=== PATIENT | male | born 1990 | race Hispanic/Latino ===

== ENCOUNTER 2017-11-30 10:42 | Day surgery (SDC) | payer OTHER ==
[2017-11-30] MEDS ORDERED: NACL 0.9% 1000 ML 1,000 ML IV SCH (12:00)
[2017-11-30] MEDS ORDERED: ANCEF/STERILE WATER 2 GM/20 ML IV NR (12:00)
--- NOTE | 2017-11-30 12:00 | Anesthesia Day of Surgery ---
Anesthesia Day of Surgery - Day of Surgery Patient Examined: Yes Patient H&P Reviewed: Yes Patient is NPO: Yes Beta Blockers: No Cardiac Clearance: No Pulmonary Clearance: No
--- NOTE | 2017-11-30 12:00 | Anesthesia Consultation ---
Anesthesia Consult and Med Hx Date of service: 11/30/17 - Airway Anesthetic Teeth Evaluation: Good ROM Head & Neck: Adequate Mallampati Class: Class II Intubation Access Assessment: Probably Good - Pulmonary Exam CTA: Yes - Cardiac Exam Cardiac Exam: RRR - Pre-Operative Health Status ASA Pre-Surgery Classification: ASA2 Proposed Anesthetic Plan: General - Pre-Anesthesia Comment Pre-Anesthesia Comments: smoker/fractured radius - Pulmonary Hx Smoking: Yes (4 PER DAY X 2 YRS) Hx Sleep Apnea: No (DEON PRE SCREEN LOW RISK.) - Cardiovascular System Hx Hypertension: No - Other Systems Hx Cancer: No
[2017-11-30] MEDS ORDERED: DILAUDID ONE (12:22)
[2017-11-30] MEDS ORDERED: XYLOCAINE MPF 2% ONE (12:23)
[2017-11-30] MEDS ORDERED: DIPRIVAN 10 MG/ML IV ONE (12:23)
[2017-11-30] MEDS ORDERED: TRIPLE ANTIBIOTIC TP ONE (12:30)
[2017-11-30] MEDS ORDERED: MARCAINE-EPI 0.5%-1:200,000 INFILTRATI ONE (12:30)
[2017-11-30] MEDS ORDERED: VERSED ONE (12:45)
[2017-11-30] MEDS ORDERED: SUBLIMAZE ONE (12:48)
[2017-11-30] MEDS ORDERED: LACTATED RINGERS 1,000 ML ONE (14:30)
[2017-11-30] MEDS: DILAUDID IV PRN ×3 (14:38→15:04)
--- NOTE | 2017-11-30 14:43 | Procedure Note ---
Date of procedure: 11/30/17 Pre-op diagnosis: displaced right proximal third radius fracture Post-op diagnosis: same Procedure: Open reduction internal fixation right radial shaft fracture Procedure The patient was brought to the OR [place] I table in supine position following induction and intubation by anesthesia the patient's right upper extremity was prepped and draped in the usual sterile manner. A timeout procedure was done to identify the patient and the correct operative site.The arm was then exsanguinated followed by inflation of the pneumatic tourniquet to 250 mmHg. A volar incision was made over the middle to proximal third of the forearm along the radial border this was then taken down through skin and subcutaneous the brachioradialis muscle was identified and using the inter-nervous plane the neurovascular structures were seen and retracted out of the operative field this brought us down to the fracture site using a periosteal elevator the soft tissues were debrided from the fracture site using 2 bone-holding forceps the fracture was then manipulated into a reduced position a diameter interfragmentary lag screw was then passed from proximal to distal following this a 7 hole 3.5 pelvic reconstruction plate was then placed against the volar surface of the radius and secured bilaterally of an AP and lateral view was obtained showing good reduction at the fracture and placement of our hardware next the wound was copiously irrigated and was closed in a standard routine fashion. Dressings were applied as well as a well padded volar splint the patient tolerated the procedure there were no complications and he was taken to postanesthesia recovery in stable condition Anesthesia: HERMILO Surgeon: FELECIA BLACKWELL Balance Wheel Screw Hole Driller: PREETHI GAUTHIER Estimated blood loss: minimal Pathology: none Condition: stable Disposition: PACU
[2017-11-30] MEDS ORDERED: DILAUDID IV PRN ×2 (15:03→15:25)
[2017-11-30] MEDS ORDERED: TORADOL IV ONE (15:07)
[2017-11-30] MEDS ORDERED: DEMEROL IV PRN (15:08)
--- NOTE | 2017-11-30 16:14 | Post Anesthesia Evaluation ---
- Post Anesthesia Evaluation Patient Participated: Yes Airway Patent: Yes Stable Respiratory Function: Yes Nausea/Vomiting: No Temp > 96.8F: Yes Pain Manageable: Yes Adequeate Hydration: Yes Anesthesia Complications: No Block Receding Appropriately: No Patient on Ventilator: No
[2017-11-30] MEDS ORDERED: NORCO 5/325 PO ONE (16:33)
[2017-11-30] MEDS ORDERED: ZOFRAN IV ONE (18:07)
[2017-11-30 18:36] VITALS: BP 114/64
--- NOTE | 2017-12-03 07:11 | XRay Report ---
Right forearm 2 views: History: Right radius fracture. Findings: There is internal fixation noted of fracture mid-diaphysis right radius. Metallic plate and screws appear to be stable. Abnormal location of single screw is identified in the midportion. No previous studies for comparison. Impression: Findings as detailed above. Comparison with previous studies may be recommended.
== END 2017-11-30 18:21 | disposition home or self-care (01) ==
LOC: OR 10:42
PROVIDERS: ATTEND Orthopaedic Surgery
DX: S52.101A Unspecified fracture of upper end of right radius, initial encounter for closed fracture (principal); F17.210 Nicotine dependence, cigarettes, uncomplicated; X58.XXXA Exposure to other specified factors, initial encounter; Y93.89 Activity, other specified; Y92.89 Other specified places as the place of occurrence of the external cause; Y99.8 Other external cause status
CPT/HCPCS: 25525; 73090; C1713; J0690; J1170; J1885; J2175; J2250; J2405; J2704; J3010; J7030; J7120; A6250

== ENCOUNTER 2018-01-10 09:52 | Outpatient (CLI) | payer OTHER ==
--- NOTE | 2018-01-10 10:17 | XRay Report ---
RIGHT FOREARM, 2 VIEWS: History: Pain in forearm. The internally fixated radial shaft fracture is unchanged in position and alignment since the operative films dated 11/30/17. Subtle calcified callus is identified at the fracture site consistent with a healing fracture. The remainder of the examination is within normal limits. IMPRESSION: Healing, internally fixated right radial fracture.
== END 2018-01-10 09:53 | disposition home or self-care (01) ==
LOC: XRAY 09:52
PROVIDERS: ATTEND Orthopaedic Surgery
DX: M79.631 Pain in right forearm (principal); F17.290 Nicotine dependence, other tobacco product, uncomplicated

== ENCOUNTER 2018-02-27 10:57 | Outpatient (CLI) | payer OTHER ==
--- NOTE | 2018-02-27 11:38 | XRay Report ---
RIGHT FOREARM: History: Pain in right forearm The internally fixated radial shaft fracture is unchanged in position and alignment since 01/10/18. Calcified callus bridges the fracture site although fracture lines remain evident. The ulna is unremarkable. The soft tissues are within normal limits. IMPRESSION: Healing right radial fracture.
== END 2018-02-27 10:58 | disposition home or self-care (01) ==
LOC: XRAY 10:57
PROVIDERS: ATTEND Orthopaedic Surgery
DX: S52.91XD Unspecified fracture of right forearm, subsequent encounter for closed fracture with routine healing (principal); Z87.891 Personal history of nicotine dependence; X58.XXXD Exposure to other specified factors, subsequent encounter